=== PATIENT | male | born 1975 | race Caucasian/White ===

== ENCOUNTER 2018-03-02 10:07 | Outpatient (CLI) | payer BC ==
[2018-03-02] MEDS ORDERED: RIVA15TA PO (11:59)
== END 2018-03-02 23:59 | disposition home or self-care (01) ==
LOC: VAS 10:07
PROVIDERS: ATTEND Orthopaedic Surgery
DX: R60.0 Localized edema (principal); S83.231A Complex tear of medial meniscus, current injury, right knee, initial encounter; S83.411A Sprain of medial collateral ligament of right knee, initial encounter; X58.XXXA Exposure to other specified factors, initial encounter; Y93.89 Activity, other specified; Y92.89 Other specified places as the place of occurrence of the external cause; Y99.8 Other external cause status
CPT/HCPCS: 93971

== ENCOUNTER 2018-03-02 10:57 | Emergency (ER) | payer BC ==
[~2018-03-02] VITALS: Ht 177.8 cm; Wt 101.0 kg
[2018-03-02] MEDS ORDERED: RIVA15TA PO (11:59)
[2018-03-02 12:33] VITALS: BP 132/79
== END 2018-03-02 12:40 | disposition home or self-care (01) ==
LOC: ER 10:57
DX: I82.402 Acute embolism and thrombosis of unspecified deep veins of left lower extremity (principal); Z98.890 Other specified postprocedural states
CPT/HCPCS: 99283

== ENCOUNTER 2023-11-28 09:55 | Day surgery (SDC) | payer BC, OTHER ==
[2023-11-28] VITALS (18 sets, daily range): BP systolic 124–164; BP diastolic 78–104; PULSE 59–85; RESP 11–18; TEMP 97.1; O2SAT 93–99
[~2023-11-28] VITALS: Ht 180.3 cm; Wt 109.0 kg
[~2023-11-28 09:55] MED LIST: CETI-90 PO; FLUT1BLS3 INH; LIDOcaine 1% w/EPI 1:100,000 inj. MDV 50 ML VIAL ONE; cefazolin 2gm/D5W 100mL 100 ML IV ONE; enalaprilat dihydrate 2.5mg/2ml vial IV PRN; epiNEPHrine 1 mg/ml 30ml MDV ONE; famotidine 20mg tablet PO ONE; labetalol 20mg/4ml (5mg/ml) syringe IV PRN; meperidine/PF 25mg/ml syringe IV PRN; morphine 2 MG/ML inj. syringe IV PRN; morphine 4 MG/ML inj SYRINge IV PRN; mupirocin 2% ointment 22GM ONE; ondansetron/PF 4mg/2ml inj IV PRN; oxymetazoline 15 ML nasal spray NS ONE; proCHLORperazine 10 MG/2 ml inj IV PRN; ringers solution, lacted 1,000 ML IV SCH; tranexamic acid 100mg/ml inj. ONE; tranexamic acid inj. 1,000 MG in normal saline IV soln 100ML IV ONE
[2023-11-28] MEDS ORDERED: LIDOcaine 2% (20mg/ml) 5ml vial ONE (12:05)
[2023-11-28] MEDS ORDERED: propofol inj 20 ML IV ONE (12:05)
[2023-11-28] MEDS ORDERED: cocaine 4% topical solution 4ml bottle ONE (12:32)
[2023-11-28] MEDS ORDERED: fentaNYL /PF 50mcg/ml 5ml ampule ONE (12:49)
[2023-11-28] MEDS ORDERED: midazolam 1 mg/ML 2ml injection ONE (12:49)
[2023-11-28] MEDS ORDERED: lidocaine 1%/epinephrine 1:100,000 inj. 50ml multi-dose vial SQ ONE (13:00)
[2023-11-28] MEDS ORDERED: methylPREDNISolone acetate 80mg/ml inj**IM only IM ONE (13:00)
[2023-11-28] MEDS ORDERED: cocaine 4% topical solution 4ml bottle TP ONE (13:00)
[2023-11-28] MEDS ORDERED: mupirocin 2% cream 15gm TP ONE (13:00)
[2023-11-28] MEDS ORDERED: oxymetazoline 15 ML nasal spray NS ONE (13:00)
[2023-11-28] MEDS ORDERED: rocuronium 10mg/ml inj IV ONE (13:05)
[2023-11-28] MEDS ORDERED: methylPREDNISolone acetate 80mg/ml inj**IM only ONE (13:22)
[2023-11-28] MEDS ORDERED: ondansetron/PF 4mg/2ml inj ONE (14:19)
[2023-11-28] MEDS ORDERED: salt irrigation nasal spray 45 ML SPRAY NS PRN (15:25)
[2023-11-28] MEDS ORDERED: acetaminophen 1,000mg/100ml IV 100 ML IV ONE (16:30)
== END 2023-11-28 17:32 | disposition home or self-care (01) ==
LOC: PRE-OP 09:55
PROVIDERS: ATTEND Otolaryngology
DX: J34.2 Deviated nasal septum (principal); J34.3 Hypertrophy of nasal turbinates; J32.8 Other chronic sinusitis; J33.8 Other polyp of sinus; J45.909 Unspecified asthma, uncomplicated; G47.30 Sleep apnea, unspecified; E66.9 Obesity, unspecified; Z68.33 Body mass index [BMI] 33.0-33.9, adult; Z98.890 Other specified postprocedural states; Z86.718 Personal history of other venous thrombosis and embolism; Z79.899 Other long term (current) drug therapy; Z98.41 Cataract extraction status, right eye; Z98.42 Cataract extraction status, left eye
CPT/HCPCS: 30140; 30520; 31255; 31267; 61782; 82948; 93005; A6402; J0131; J0171; J0690; J1040; J2250; J2405; J2704; J3010; J3490; J7030; J7050; J7120; Z7506; Z7508; Z7512; A4618; A6449; A7000

== ENCOUNTER 2024-01-09 08:45 | Day surgery (SDC) | payer BC, OTHER ==
[2024-01-09] VITALS (19 sets, daily range): BP systolic 119–166; BP diastolic 78–96; PULSE 64–79; RESP 9–16; TEMP 98.5; O2SAT 92–98
[~2024-01-09] VITALS: Ht 180.3 cm; Wt 111.0 kg
[2024-01-09] MEDS: oxymetazoline 15 ML nasal spray NS ONE ×2 (05:30→12:56)
[2024-01-09] MEDS: cefazolin 2gm/D5W 100mL 100 ML IV ONE (05:30)
[2024-01-09] MEDS: tranexamic acid inj. 1,000 MG in normal saline IV soln 100ML IV ONE (05:30)
[2024-01-09] MEDS: famotidine 20mg tablet PO ONE (05:30)
[~2024-01-09 08:45] MED LIST changes: -LIDOcaine 1% w/EPI 1:100,000 inj. MDV 50 ML VIAL ONE; +MOMETASONE; +[UNRECOGNIZED DRUG - CODE] EACHEYE; -cefazolin 2gm/D5W 100mL 100 ML IV ONE; -enalaprilat dihydrate 2.5mg/2ml vial IV PRN; -epiNEPHrine 1 mg/ml 30ml MDV ONE; -famotidine 20mg tablet PO ONE; -labetalol 20mg/4ml (5mg/ml) syringe IV PRN; -meperidine/PF 25mg/ml syringe IV PRN; +methylPREDNISolone acetate 80mg/ml inj**IM only ONE; -morphine 2 MG/ML inj. syringe IV PRN; -morphine 4 MG/ML inj SYRINge IV PRN; -mupirocin 2% ointment 22GM ONE; -ondansetron/PF 4mg/2ml inj IV PRN; -oxymetazoline 15 ML nasal spray NS ONE; -proCHLORperazine 10 MG/2 ml inj IV PRN; -tranexamic acid 100mg/ml inj. ONE; -tranexamic acid inj. 1,000 MG in normal saline IV soln 100ML IV ONE
[2024-01-09] MEDS ORDERED: fentaNYL/PF 50MCG/1 ML 2ML syringe ONE (10:23)
[2024-01-09] MEDS ORDERED: midazolam 1 mg/ML 2ml injection ONE (10:23)
[2024-01-09] MEDS ORDERED: ondansetron/PF 4mg/2ml inj ONE (10:24)
[2024-01-09] MEDS ORDERED: propofol inj 20 ML IV ONE (10:24)
[2024-01-09] MEDS ORDERED: LIDOcaine 2% (20mg/ml) 5ml vial ONE (10:25)
[2024-01-09] MEDS ORDERED: glycopyrrolate 0.2mg/ml inj ONE (10:30)
[2024-01-09] MEDS ORDERED: sevoflurane 250ml liquid IH ONE (10:30)
[2024-01-09] MEDS ORDERED: neostigmine methylsulfate 1 MG/ML 10ml vial ONE (10:30)
[2024-01-09] MEDS: cocaine 4% topical solution 4ml bottle ONE (10:40)
[2024-01-09] MEDS: LIDOcaine 1% w/EPI 1:100,000 inj. MDV 50 ML VIAL ONE (10:55)
[2024-01-09] MEDS ORDERED: rocuronium 10mg/ml inj IV ONE (11:02)
[2024-01-09] MEDS ORDERED: acetaminophen 1,000mg/100ml IV 100 ML IV ONE (11:04)
[2024-01-09] MEDS ORDERED: ondansetron/PF 4mg/2ml inj IV PRN (11:15)
[2024-01-09] MEDS ORDERED: fentaNYL/PF 50MCG/1 ML 2ML syringe IV PRN ×2 (11:15)
[2024-01-09] MEDS ORDERED: morphine 2 MG/ML inj. syringe IV PRN (11:15)
[2024-01-09] MEDS ORDERED: morphine 4 MG/ML inj SYRINge IV PRN (11:15)
[2024-01-09] MEDS ORDERED: hydrALAZINE 20mg/ml inj. IV PRN (11:15)
[2024-01-09] MEDS ORDERED: ringers solution, lacted 1,000 ML IV SCH (11:15)
[2024-01-09] MEDS: epiNEPHrine 1 mg/ml 30ml MDV ONE (11:28)
[2024-01-09] MEDS: mupirocin 2% ointment 22GM ONE (11:30)
[2024-01-09] MEDS: tranexamic acid 100mg/ml inj. ONE (11:31)
[2024-01-09] MEDS ORDERED: labetalol 20mg/4ml (5mg/ml) syringe IV ONE (11:54)
[2024-01-09] MEDS ORDERED: dexamethasone sod phosphate 4mg/ml inj. ONE ×2 (12:00→12:15)
[2024-01-09] MEDS: dexamethasone 0.5 mg/5ml unit-dose oral solution PO ONE (12:15)
[2024-01-09] MEDS: methylPREDNISolone acetate 80mg/ml inj**IM only IM ONE (12:15)
[2024-01-09] MEDS: mupirocin 2% nasal ointment 1gm UD NS ONE (13:22)
[2024-01-09] MEDS: salt irrigation nasal spray 45 ML SPRAY NS PRN (13:22)
[2024-01-09] MEDS: labetalol 20mg/4ml (5mg/ml) syringe IV PRN (14:12)
== END 2024-01-09 14:48 | disposition home or self-care (01) ==
LOC: PAS 08:45
PROVIDERS: ATTEND Otolaryngology
DX: J32.8 Other chronic sinusitis (principal); J33.8 Other polyp of sinus; J45.909 Unspecified asthma, uncomplicated; G47.30 Sleep apnea, unspecified; E66.9 Obesity, unspecified; Z68.34 Body mass index [BMI] 34.0-34.9, adult; Z98.41 Cataract extraction status, right eye; Z98.42 Cataract extraction status, left eye; Z98.890 Other specified postprocedural states; Z86.718 Personal history of other venous thrombosis and embolism; Z79.899 Other long term (current) drug therapy
CPT/HCPCS: 31276; 31288; 61782; 82948; A6402; J0131; J0171; J0690; J1040; J1100; J2250; J2405; J2704; J2710; J3010; J3490; J7030; J7050; J7120; J8540; Z7506; Z7508; Z7512; A4618; A6449; A7000